=== PATIENT | female | born 1985 | race Caucasian/White ===

== ENCOUNTER 2018-10-17 14:19 | Emergency (ER) | payer BC ==
[~2018-10-17] VITALS: Ht 162.6 cm; Wt 81.6 kg
[2018-10-17 14:21] VITALS: BP 129/71
--- NOTE | 2018-10-17 14:27 | NUR ---
PATIENT AMBULATED TO ER BED 6.
[2018-10-17] MEDS ORDERED: BACITRACIN OINT 500 UNITS/GM PKT TP ONE (14:30)
[2018-10-17] MEDS ORDERED: LIDOCAINE 1% ***ER ONLY *** 10 MG/ML VIAL INJ ONE (14:30)
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
[2018-10-17] MEDS ORDERED: LIDOCAINE MPF 1% 5mL VIAL ONE (14:45)
[2018-10-17 15:18] VITALS: BP 132/82
== END 2018-10-17 15:18 | disposition home or self-care (01) ==
LOC: MED 14:19
DX: S61.210A Laceration without foreign body of right index finger without damage to nail, initial encounter (principal); Z90.49 Acquired absence of other specified parts of digestive tract; X58.XXXA Exposure to other specified factors, initial encounter; Y93.89 Activity, other specified; Y92.89 Other specified places as the place of occurrence of the external cause; Y99.8 Other external cause status
CPT/HCPCS: 12001; 90471; 90715; 99283; J2001